=== PATIENT | male | born 1980 | race Two or more races ===

== ENCOUNTER 2019-05-21 03:38 | Emergency (ER) | payer OTHER ==
[~2019-05-21] VITALS: Ht 154.9 cm; Wt 69.0 kg
[2019-05-21] MEDS ORDERED: MORPHINE SULFATE 4 MG/ML CPJ (NOT FOR IM USE) IV STA (04:16)
[2019-05-21] MEDS ORDERED: ONDANSETRON HCL 4MG/2ML INJ IV STA (04:16)
[2019-05-21 04:38] LABS: HEMATOCRIT. 30.1 % (42.0-52.0); HEMOGLOBIN. 8.8 g/dL (14.0-18.0); MEAN CORPUSCULAR HEMOGLOBIN 17.1 pg (28.0-32.0); MEAN CORPUSCULAR VOLUME 58.6 fL (80.0-94.0); MEAN PLATELET VOLUME 9.4 fl (7.4-10.4); PLATELET 231 x1000/uL (130-400); RED BLOOD CELL COUNT 5.15 mill/uL (4.7-6.1); RED CELL DISTRIBUTION WIDTH 18.4 % (11.6-14.6)
[2019-05-21 04:43] LABS: CHLORIDE 111 mEq/L (98-107)
[2019-05-21] MEDS ORDERED: SODIUM CHLORIDE 0.9% 1000ML BAG (SEPSIS BOLUS) IV ONE (05:00)
[2019-05-21 05:27] LABS: PLATELET ESTIMATE NORMAL
[2019-05-21] MEDS ORDERED: IOHEXOL-300 100 ML BOTTLE ONE (07:11)
[2019-05-21 07:42] VITALS: BP 112/73
== END 2019-05-21 07:42 | disposition home or self-care (01) ==
LOC: ER 03:38
DX: K42.9 Umbilical hernia without obstruction or gangrene (principal); E87.2 Acidosis; I10 Essential (primary) hypertension
CPT/HCPCS: 36415; 74177; 80053; 83605; 83690; 85025; 96374; 96375; 99284; J2270; J2405; J7030; Q9967